=== PATIENT | male | born 1985 ===

== ENCOUNTER 2023-06-20 17:55 | Inpatient (IN) | payer OTHER ==
[2023-06-20 18:52] LABS: #Eosinphils 0.3 thou/uL (0.0-0.7); #Monocytes 0.7 thou/uL (0.11-0.59); #Neutrophils 7.4 thou/uL (1.40-6.50); %Basophils 0.3 % (0.0-1.0); %Eosinophils 2.5 % (0.0-10.0); %Lymphocytes 17.5 % (21.0-51.0); %Monocytes 6.4 % (0.0-10.0); %Neutrophils 72.9 % (42.0-75.0); Hematocrit 46.3 % (42.0-52.0); Hemoglobin 15.1 g/dL (14.0-18.0); Mean Corpuscular HGB CONC 32.6 g/dL (32.0-36.0); Mean Corpuscular Hemoglobin 28.3 pg (27.0-31.0); Mean Corpuscular Volume 86.7 fl (78.0-98.0); Mean Platelet Volume 8.8 fL (7.4-10.4); Platelet Count 295 10x3/uL (130-400); RBC Distribution Width 11.9 % (11.5-14.5); Red Blood Cell (RBC) Count 5.34 mill/uL (4.70-6.10); White Blood Cell (WBC) Count 10.2 10x3/uL (4.8-10.8)
[2023-06-20 19:08] LABS: ALT (SGPT) 21 U/L (8-55); AST (SGOT) 19 U/L (5-34); Albumin 4.7 g/dL (3.5-5.0); Alkaline Phosphatase 59 U/L (40-110); Anion Gap 14 mmol/L (10-20); BUN (Urea Nitrogen) 11 mg/dL (8.9-20.6); Bilirubin, Total 0.7 mg/dL (0.2-1.2); Calc. Creatinine Clearance 0 mL/min (70-130); Calcium 9.3 mg/dL (7.8-10.44); Carbon Dioxide 22 mmol/L (22-29); Chloride 104 mmol/L (98-107); Estimated GFR 111; Glucose 149 mg/dL (70-105); Potassium 3.9 mmol/L (3.5-5.1); Protein, Total 7.7 g/dL (6.0-8.3); Sodium 136 mmol/L (136-145)
[2023-06-20] MEDS ORDERED: Ketorolac Tromethamine 30 MG (1 mL) VIAL ONE (19:17)
[2023-06-20] MEDS ORDERED: LORazepam 2 MG/ML SYR.(CARPUJECT) ONE (19:18)
[2023-06-20] MEDS ORDERED: Ondansetron PF 4 MG/2 ML Vial ONE ×2 (19:18→20:26)
[2023-06-20] MEDS ORDERED: Ketamine In 0.9 % NaCl 50 MG/5 ML SYRINGE ONE (19:18)
[2023-06-20] MEDS ORDERED: Magnesium 2 GM/50 ML BAG (IN WATER) ONE (20:05)
[2023-06-20] MEDS ORDERED: metroNIDAZOLE 500 MG (100 mL) BAG ONE (20:05)
[2023-06-20] MEDS ORDERED: Boostrix 0.5 ML (Tdap) VIAL (>/=7 yrs of age) ONE (20:06)
[2023-06-20] MEDS ORDERED: TETANUS, DIPHTHERIA TOX,ADULT (TDVAX) 0.5 ML VIAL IM ONE (20:06)
[2023-06-20] MEDS ORDERED: Rocuronium Bromide 10 MG/ML (10ML VIAL) ONE (20:10)
[2023-06-20] MEDS ORDERED: Etomidate 40 MG (20 mL) VIAL ONE (20:10)
[2023-06-20] MEDS ORDERED: Midazolam HCl 2 mg/2 ml Vial ONE (20:26)
[2023-06-20] MEDS ORDERED: Clindamycin/D5W 900 MG in Premix 1 BAG IVPB SCH (20:30)
[2023-06-20 20:33] LABS: Actual Bicarbonate (HCO3a) 20.6 mEq/L (22-28); Base Excess (BEa) -3.4 mEq/L (-2.0 to +3.0); CO2 Tension 34.3 mmHg (35.0-45.0); Calcium, Ionized (arterial) 1.15 mmol/L (1.12-1.30); Carboxyhemoglobin (COHb) 0.8 gm% (0.0-3.0); Hematocrit-ABG 41 % (42.0-52.0); Hemoglobin (Hb) 14.1 g/dL (14.0-18.0); O2 Tension (PaO2), arterial 134.7 mmHg (80.0-100.0); Potassium - ABG Lab 3.99 mmol/L (3.70-5.30); pH, Arterial 7.397 (7.35-7.45)
[2023-06-20 20:37] LABS: ALV-art Gradient 36.325 mmHg (0-20); Puncture Site LBA
[2023-06-20] MEDS ORDERED: fentaNYL 50 mcg/mL 1 mL Vial ONE (20:59)
[2023-06-20] MEDS ORDERED: HyperTET 250 UNITS/ML 1 ML SYRINGE IM ONE (21:00)
[2023-06-20] MEDS ORDERED: Midazolam HCl 5 mg/ml Vial ONE ×2 (21:52→22:00)
[2023-06-20] MEDS ORDERED: Propofol 1,000 MG/100 ML VIAL IV ONE (22:02)
[2023-06-20] MEDS ORDERED: Fentanyl CADD 100 ML ONE (22:45)
[2023-06-20] MEDS ORDERED: Ventilator Sedation Protocol 1 EACH FS SCH (22:45)
[2023-06-20] MEDS ORDERED: Fentanyl BOLUS 250 ML IVPB PRN (23:00)
[2023-06-20] MEDS ORDERED: DISCONTINUE PREVIOUS NARCOTIC PAIN MEDICATIONS AND BENZODIAZEPINES FS SCH (23:00)
[2023-06-20] MEDS ORDERED: Propofol BOLUS 1,000 MG/100 ML VIAL IV PRN (23:00)
[2023-06-20] MEDS: Fentanyl CADD 100 ML IV SCH (23:23)
[2023-06-20] MEDS ORDERED: Dextrose 50% Abboject 50 ML SYRINGE SLOW IVP PRN (23:51)
[2023-06-20] MEDS ORDERED: Dextrose 5% in Water 1,000 ML IV PRN (23:51)
[2023-06-20] MEDS ORDERED: Glucagon 1 MG/ML KIT IM PRN (23:51)
[2023-06-20] MEDS ORDERED: Electrolyte Replacement Protocol 1 EACH FS PRN (23:52)
[2023-06-21] MEDS: Lactated Ringer's 1,000 ML IV SCH ×3 (00:16→19:45)
[2023-06-21] MEDS: Propofol 1,000 MG/100 ML VIAL IV PRN ×5 (01:07→23:36)
[2023-06-21] MEDS: metroNIDAZOLE 500 MG in Premix 1 BAG IVPB SCH ×4 (01:17→20:28)
[2023-06-21] MEDS ORDERED: levETIRAcetam 500 MG (5 mL) VIAL SLOW IVP SCH ×2 (02:00→02:15)
[2023-06-21 02:07] LABS: #Neutrophils 10.3 thou/uL (1.40-6.50); %Basophils 0.1 % (0.0-1.0); %Eosinophils 0.3 % (0.0-10.0); %Lymphocytes 19.4 % (21.0-51.0); %Monocytes 7.1 % (0.0-10.0); %Neutrophils 72.7 % (42.0-75.0); Hematocrit 41.1 % (42.0-52.0); Hemoglobin 13.3 g/dL (14.0-18.0); Mean Corpuscular HGB CONC 32.4 g/dL (32.0-36.0); Mean Corpuscular Hemoglobin 28.6 pg (27.0-31.0); Mean Corpuscular Volume 88.4 fl (78.0-98.0); Mean Platelet Volume 8.9 fL (7.4-10.4); Platelet Count 264 10x3/uL (130-400); Red Blood Cell (RBC) Count 4.65 mill/uL (4.70-6.10); White Blood Cell (WBC) Count 14.1 10x3/uL (4.8-10.8)
[2023-06-21 02:18] LABS: Lactic Acid 3.3 mmol/L (0.5-2.2)
[2023-06-21 02:29] LABS: Amphetamine Not Detected (NotDetected); Barbiturates Screen Not Detected (NotDetected); Benzodiazepine Screen Detected (NotDetected); Cocaine Metabolite Screen Not Detected (NotDetected); Methadone Not Detected (NotDetected); Methamphetamine Not Detected (NotDetected); Opiate Screen Not Detected (NotDetected); Oxycodone Screen Not Detected (NotDetected); Phencyclidine (PCP) Not Detected (NotDetected); THC/Cannabinoid Screen Not Detected (NotDetected); Tricyclic Screen Not Detected (NotDetected)
[2023-06-21 02:33] LABS: Hemoglobin A1c 5.1 % (4.0-6.0)
[2023-06-21 02:38] LABS: ALT (SGPT) 17 U/L (8-55); AST (SGOT) 20 U/L (5-34); Albumin 3.7 g/dL (3.5-5.0); Alkaline Phosphatase 58 U/L (40-110); Anion Gap 18 mmol/L (10-20); BUN (Urea Nitrogen) 8 mg/dL (8.9-20.6); Bilirubin, Total 0.8 mg/dL (0.2-1.2); CK (CPK) 147 U/L (30-200); Calc. Creatinine Clearance 154 mL/min (70-130); Carbon Dioxide 18 mmol/L (22-29); Chloride 108 mmol/L (98-107); Estimated GFR 116; Globulin 2.6 g/dL (2.4-3.5); Glucose 99 mg/dL (70-105); Protein, Total 6.3 g/dL (6.0-8.3); Sodium 140 mmol/L (136-145)
[2023-06-21] MEDS ORDERED: cefTRIAXone\\ROCEPHIN 2 GM in Sodium Chloride 0.9% 100 ML IVPB SCH (03:00)
[2023-06-21] MEDS ORDERED: metroNIDAZOLE 500 MG in Premix 1 BAG IVPB SCH (06:00)
[2023-06-21 07:31] LABS: Base Excess (BEa) 1.7 mEq/L (-2.0 to +3.0); Calcium, Ionized (arterial) 1.18 mmol/L (1.12-1.30); Carboxyhemoglobin (COHb) 0.6 gm% (0.0-3.0); Hematocrit-ABG 39 % (42.0-52.0); Hemoglobin (Hb) 13.2 g/dL (14.0-18.0); O2 Tension (PaO2), arterial 137.5 mmHg (80.0-100.0); Potassium - ABG Lab 3.36 mmol/L (3.70-5.30); pH, Arterial 7.507 (7.35-7.45)
[2023-06-21 07:34] LABS: Puncture Site RBA
[2023-06-21] MEDS ORDERED: Magnesium 2 GM/50 ML(in water) 2 GM in Premix 1 BAG IVPB SCH (08:00)
[2023-06-21] MEDS: Famotidine 20 MG TAB PER TUBE SCH ×2 (08:17→20:33)
[2023-06-21] MEDS: Enoxaparin 40 MG (0.4 mL) SYRINGE SC SCH (08:17)
[2023-06-21 08:43] LABS: Lactic Acid 3.2 mmol/L (0.5-2.2)
[2023-06-21] MEDS: Ampicillin/Sulbactam 3 GM in Sodium Chloride 0.9% 100 ML IVPB SCH ×3 (09:31→20:28)
[2023-06-21] MEDS ORDERED: HyperTET 250 UNITS/ML 1 ML SYRINGE IM ONE (12:00)
[2023-06-21 14:17] LABS: ALT (SGPT) 17 U/L (8-55); AST (SGOT) 19 U/L (5-34); Albumin 3.4 g/dL (3.5-5.0); Alkaline Phosphatase 56 U/L (40-110); Anion Gap 16 mmol/L (10-20); BUN (Urea Nitrogen) 10 mg/dL (8.9-20.6); Bilirubin, Total 1.1 mg/dL (0.2-1.2); Calc. Creatinine Clearance 142 mL/min (70-130); Calcium 8.2 mg/dL (7.8-10.44); Carbon Dioxide 20 mmol/L (22-29); Chloride 107 mmol/L (98-107); Estimated GFR 113; Globulin 2.6 g/dL (2.4-3.5); Glucose 69 mg/dL (70-105); Potassium 3.8 mmol/L (3.5-5.1); Sodium 139 mmol/L (136-145)
[2023-06-21 14:32] LABS: HIV (1/2) Antibody/Antigen Non-Reactive (NonReactive); HIV 1/2 INDEX 0.15 S/CO (<1.00)
[2023-06-21] MEDS: Lorazepam 2 MG/ML VIAL SLOW IVP PRN ×2 (19:48→23:21)
[2023-06-21] MEDS: Acetaminophen 325 MG TAB PER TUBE PRN (19:49)
[2023-06-21] MEDS: levETIRAcetam 500 MG (5 mL) VIAL SLOW IVP SCH (20:26)
[2023-06-21] MEDS ORDERED: Ibuprofen 800 MG TAB PER TUBE SCH (20:45)
[2023-06-21] MEDS ORDERED: levETIRAcetam 500 MG TAB PO SCH (21:00)
[2023-06-22] MEDS: Ampicillin/Sulbactam 3 GM in Sodium Chloride 0.9% 100 ML IVPB SCH ×4 (02:03→20:45)
[2023-06-22] MEDS: Potassium Chloride 10 MEQ in Dextrose 5%-Lactated Ringers 1,000 ML IV SCH ×2 (02:03→13:00)
[2023-06-22] MEDS: metroNIDAZOLE 500 MG in Premix 1 BAG IVPB SCH ×2 (02:14→10:05)
[2023-06-22] MEDS ORDERED: Ibuprofen 100 MG/5 ML UDCUP PER TUBE SCH (02:15)
[2023-06-22] MEDS: Lorazepam 2 MG/ML VIAL SLOW IVP PRN ×2 (02:34→07:45)
[2023-06-22] MEDS: Propofol 1,000 MG/100 ML VIAL IV PRN ×3 (03:18→14:28)
[2023-06-22 04:21] LABS: #Eosinphils 0.5 thou/uL (0.0-0.7); #Monocytes 1.1 thou/uL (0.11-0.59); #Neutrophils 5.3 thou/uL (1.40-6.50); %Basophils 0.5 % (0.0-1.0); %Eosinophils 5.4 % (0.0-10.0); %Lymphocytes 20.3 % (21.0-51.0); %Monocytes 12.7 % (0.0-10.0); Hematocrit 39.6 % (42.0-52.0); Hemoglobin 12.7 g/dL (14.0-18.0); Mean Corpuscular HGB CONC 32.1 g/dL (32.0-36.0); Mean Corpuscular Hemoglobin 28.4 pg (27.0-31.0); Mean Corpuscular Volume 88.6 fl (78.0-98.0); Mean Platelet Volume 9.2 fL (7.4-10.4); Platelet Count 246 10x3/uL (130-400); RBC Distribution Width 12.3 % (11.5-14.5); Red Blood Cell (RBC) Count 4.47 mill/uL (4.70-6.10); White Blood Cell (WBC) Count 8.6 10x3/uL (4.8-10.8)
[2023-06-22 04:36] LABS: ALT (SGPT) 18 U/L (8-55); AST (SGOT) 19 U/L (5-34); Albumin 3.5 g/dL (3.5-5.0); Alkaline Phosphatase 55 U/L (40-110); Anion Gap 11 mmol/L (10-20); BUN (Urea Nitrogen) 10 mg/dL (8.9-20.6); Bilirubin, Total 0.9 mg/dL (0.2-1.2); Calc. Creatinine Clearance 128 mL/min (70-130); Calcium 8.4 mg/dL (7.8-10.44); Carbon Dioxide 23 mmol/L (22-29); Chloride 111 mmol/L (98-107); Estimated GFR 106; Globulin 2.5 g/dL (2.4-3.5); Glucose 112 mg/dL (70-105); Potassium 3.7 mmol/L (3.5-5.1); Sodium 141 mmol/L (136-145)
[2023-06-22 07:34] LABS: CO2 Tension 36.2 mmHg (35.0-45.0); Carboxyhemoglobin (COHb) 0.5 gm% (0.0-3.0); Hematocrit-ABG 40 % (42.0-52.0); Hemoglobin (Hb) 13.5 g/dL (14.0-18.0); pH, Arterial 7.421 (7.35-7.45)
[2023-06-22 07:36] LABS: Puncture Site RRA
[2023-06-22] MEDS: Fentanyl CADD 100 ML IV SCH ×2 (08:25→22:39)
[2023-06-22 09:51] VITALS: BMI 28.3
[2023-06-22] MEDS: Famotidine 20 MG TAB PER TUBE SCH ×2 (10:06→20:46)
[2023-06-22] MEDS: levETIRAcetam 500 MG (5 mL) VIAL SLOW IVP SCH ×2 (10:06→20:46)
[2023-06-22] MEDS: Enoxaparin 40 MG (0.4 mL) SYRINGE SC SCH (10:07)
[2023-06-22 11:23] LABS: Syphilis Antibody Nonreactive (Nonreactive); Syphilis Antibody Index 0.14 S/CO (<1.00 Non-Reactive)
[2023-06-22] MEDS: Acetaminophen 325 MG TAB PER TUBE PRN (21:36)
[2023-06-23] MEDS: Potassium Chloride 10 MEQ in Dextrose 5%-Lactated Ringers 1,000 ML IV SCH ×3 (01:11→17:28)
[2023-06-23] MEDS: Propofol 1,000 MG/100 ML VIAL IV PRN ×2 (01:11→06:30)
[2023-06-23] MEDS: Ampicillin/Sulbactam 3 GM in Sodium Chloride 0.9% 100 ML IVPB SCH ×4 (01:11→20:14)
[2023-06-23 04:20] LABS: #Eosinphils 0.9 thou/uL (0.0-0.7); #Monocytes 1.3 thou/uL (0.11-0.59); #Neutrophils 5.5 thou/uL (1.40-6.50); %Basophils 0.4 % (0.0-1.0); %Lymphocytes 25.5 % (21.0-51.0); %Monocytes 12.5 % (0.0-10.0); %Neutrophils 52.3 % (42.0-75.0); Hematocrit 41.4 % (42.0-52.0); Hemoglobin 13.4 g/dL (14.0-18.0); Mean Corpuscular HGB CONC 32.4 g/dL (32.0-36.0); Mean Corpuscular Volume 89.6 fl (78.0-98.0); Platelet Count 224 10x3/uL (130-400); RBC Distribution Width 12.4 % (11.5-14.5); Red Blood Cell (RBC) Count 4.62 mill/uL (4.70-6.10); White Blood Cell (WBC) Count 10.4 10x3/uL (4.8-10.8)
[2023-06-23 05:08] LABS: ALT (SGPT) 16 U/L (8-55); AST (SGOT) 19 U/L (5-34); Albumin 3.3 g/dL (3.5-5.0); Alkaline Phosphatase 54 U/L (40-110); Anion Gap 16 mmol/L (10-20); BUN (Urea Nitrogen) 6 mg/dL (8.9-20.6); Bilirubin, Total 0.8 mg/dL (0.2-1.2); Calc. Creatinine Clearance 149 mL/min (70-130); Calcium 8.6 mg/dL (7.8-10.44); Carbon Dioxide 20 mmol/L (22-29); Chloride 109 mmol/L (98-107); Estimated GFR 115; Glucose 116 mg/dL (70-105); Protein, Total 6.3 g/dL (6.0-8.3); Sodium 141 mmol/L (136-145)
[2023-06-23 07:50] LABS: Actual Bicarbonate (HCO3a) 23.3 mEq/L (22-28); Base Excess (BEa) -0.4 mEq/L (-2.0 to +3.0); CO2 Tension 35.3 mmHg (35.0-45.0); Calcium, Ionized (arterial) 1.15 mmol/L (1.12-1.30); Carboxyhemoglobin (COHb) 0.6 gm% (0.0-3.0); Hematocrit-ABG 39 % (42.0-52.0); Hemoglobin (Hb) 13.1 g/dL (14.0-18.0); O2 Tension (PaO2), arterial 112.6 mmHg (80.0-100.0); Potassium - ABG Lab 3.77 mmol/L (3.70-5.30); pH, Arterial 7.437 (7.35-7.45)
[2023-06-23 07:52] LABS: ALV-art Gradient 57.175 mmHg (0-20); Puncture Site RRA
[2023-06-23] MEDS: Enoxaparin 40 MG (0.4 mL) SYRINGE SC SCH (09:02)
[2023-06-23] MEDS: Famotidine 20 MG TAB PER TUBE SCH ×2 (09:02→20:14)
[2023-06-23] MEDS: levETIRAcetam 500 MG (5 mL) VIAL SLOW IVP SCH ×2 (09:04→20:13)
[2023-06-23] MEDS ORDERED: Polyethylene Glycol 3350 17 GM Packet PO PRN (11:43)
[2023-06-23] MEDS ORDERED: Bisacodyl 5 MG TAB PO PRN (11:43)
[2023-06-23] MEDS ORDERED: Docusate 100 MG CAP PO PRN (11:43)
[2023-06-23] MEDS ORDERED: Dexmedetomidine 400 MCG, Admixture Fee 1 EACH in Sodium Chloride 0.9% 96 ML IVPB SCH (11:45)
[2023-06-23] MEDS ORDERED: Lorazepam 2 MG/ML VIAL SLOW IVP PRN (22:04)
[2023-06-23] MEDS: Lorazepam 2 MG/ML VIAL SLOW IVP PRN (22:16)
[2023-06-23] MEDS: Morphine 2 MG/ML VIAL SLOW IVP PRN (23:45)
[2023-06-24] MEDS: Ampicillin/Sulbactam 3 GM in Sodium Chloride 0.9% 100 ML IVPB SCH ×4 (01:29→20:31)
[2023-06-24] MEDS: Morphine 2 MG/ML VIAL SLOW IVP PRN (01:31)
[2023-06-24 06:36] LABS: #Eosinphils 0.4 thou/uL (0.0-0.7); #Monocytes 1.2 thou/uL (0.11-0.59); #Neutrophils 6.5 thou/uL (1.40-6.50); %Basophils 0.3 % (0.0-1.0); %Eosinophils 3.8 % (0.0-10.0); %Lymphocytes 19.6 % (21.0-51.0); %Monocytes 12.2 % (0.0-10.0); %Neutrophils 63.8 % (42.0-75.0); Hematocrit 42.4 % (42.0-52.0); Hemoglobin 13.8 g/dL (14.0-18.0); Mean Corpuscular HGB CONC 32.5 g/dL (32.0-36.0); Mean Corpuscular Hemoglobin 28.2 pg (27.0-31.0); Mean Corpuscular Volume 86.7 fl (78.0-98.0); Mean Platelet Volume 9.4 fL (7.4-10.4); Platelet Count 249 10x3/uL (130-400); RBC Distribution Width 11.8 % (11.5-14.5); Red Blood Cell (RBC) Count 4.89 mill/uL (4.70-6.10); White Blood Cell (WBC) Count 10.1 10x3/uL (4.8-10.8)
[2023-06-24 07:02] LABS: Anion Gap 15 mmol/L (10-20); BUN (Urea Nitrogen) 6 mg/dL (8.9-20.6); Calc. Creatinine Clearance 165 mL/min (70-130); Calcium 9.2 mg/dL (7.8-10.44); Carbon Dioxide 23 mmol/L (22-29); Chloride 107 mmol/L (98-107); Estimated GFR 119; Glucose 107 mg/dL (70-105); Potassium 3.8 mmol/L (3.5-5.1); Sodium 141 mmol/L (136-145)
[2023-06-24] MEDS ORDERED: FLU VACC QS2023-24(6MOS UP)/PF 60 MCG/0.5 ML SYRINGE IM ONE (09:00)
[2023-06-24] MEDS: Potassium Chloride 10 MEQ in Dextrose 5%-Lactated Ringers 1,000 ML IV SCH (09:30)
[2023-06-24] MEDS: Enoxaparin 40 MG (0.4 mL) SYRINGE SC SCH (09:30)
[2023-06-24] MEDS: levETIRAcetam 500 MG (5 mL) VIAL SLOW IVP SCH ×2 (09:30→20:31)
[2023-06-24] MEDS: Famotidine 20 MG TAB PER TUBE SCH ×2 (09:30→20:31)
[2023-06-24] MEDS ORDERED: Potassium Chloride 10 MEQ in Dextrose 5%-Lactated Ringers 1,000 ML IV SCH (12:24)
[2023-06-24] MEDS: Acetaminophen 325 MG TAB PER TUBE PRN ×3 (12:44→20:31)
[2023-06-25] MEDS ORDERED: Sodium Chloride 0.65% Nasal 44 ML BOT EA NARE PRN (01:11)
[2023-06-25] MEDS: Acetaminophen 325 MG TAB PER TUBE PRN ×2 (01:24→09:23)
[2023-06-25 05:13] LABS: #Eosinphils 0.9 thou/uL (0.0-0.7); #Neutrophils 4.2 thou/uL (1.40-6.50); %Basophils 0.5 % (0.0-1.0); %Eosinophils 10.6 % (0.0-10.0); %Lymphocytes 26.3 % (21.0-51.0); %Neutrophils 50.5 % (42.0-75.0); Hematocrit 42.2 % (42.0-52.0); Hemoglobin 13.7 g/dL (14.0-18.0); Mean Corpuscular HGB CONC 32.5 g/dL (32.0-36.0); Mean Corpuscular Hemoglobin 28.2 pg (27.0-31.0); Mean Platelet Volume 9.2 fL (7.4-10.4); Platelet Count 299 10x3/uL (130-400); RBC Distribution Width 11.8 % (11.5-14.5); Red Blood Cell (RBC) Count 4.85 mill/uL (4.70-6.10); White Blood Cell (WBC) Count 8.3 10x3/uL (4.8-10.8)
[2023-06-25 05:36] LABS: Anion Gap 11 mmol/L (10-20); BUN (Urea Nitrogen) 12 mg/dL (8.9-20.6); Calc. Creatinine Clearance 158 mL/min (70-130); Calcium 9.1 mg/dL (7.8-10.44); Carbon Dioxide 23 mmol/L (22-29); Chloride 109 mmol/L (98-107); Estimated GFR 117; Glucose 98 mg/dL (70-105); Potassium 3.8 mmol/L (3.5-5.1); Sodium 139 mmol/L (136-145)
[2023-06-25 08:08] VITALS: BP 144/84; TEMP 98
[2023-06-25] MEDS ORDERED: Amoxicillin/Potassium Clav 875 MG TAB PO SCH (09:00)
[2023-06-25] MEDS: Enoxaparin 40 MG (0.4 mL) SYRINGE SC SCH (09:21)
[2023-06-25] MEDS: Famotidine 20 MG TAB PER TUBE SCH (09:21)
[2023-06-25] MEDS: levETIRAcetam 500 MG (5 mL) VIAL SLOW IVP SCH (09:21)
== END 2023-06-25 11:30 | DRG 208 ==
LOC: EEVIPCON 17:55 → ERS 17:55 → CCU 22:07 → 2SE 06-23 21:12
PROVIDERS: ADMIT Internal Medicine; ATTEND Family Medicine
PROC: 5A1945Z Respiratory Ventilation, 24-96 Consecutive Hours (ICD-10-PCS; principal; 2023-06-20)
PROC: 0BH17EZ Insertion of Endotracheal Airway into Trachea, Via Natural or Artificial Opening (ICD-10-PCS; 2023-06-20)
PROC: 4A133R1 Monitoring of Arterial Saturation, Peripheral, Percutaneous Approach (ICD-10-PCS; 2023-06-20)
PROC: 4A10X4Z Monitoring of Central Nervous Electrical Activity, External Approach (ICD-10-PCS; 2023-06-21)
PROC: 4A10X4Z Monitoring of Central Nervous Electrical Activity, External Approach (ICD-10-PCS; 2023-06-22)
DX: J96.01 Acute respiratory failure with hypoxia (principal); G93.41 Metabolic encephalopathy; E87.20 Acidosis, unspecified; R25.2 Cramp and spasm; R56.9 Unspecified convulsions; J32.4 Chronic pansinusitis; G93.89 Other specified disorders of brain; Z78.1 Physical restraint status
CPT/HCPCS: 31500; 36415; 36416; 36600; 70450; 70486; 70553; 71045; 80048; 80053; 80306; 82550; 82805; 83036; 83605; 83735; 84146; 85025; 86780; 87040; 87389; 90471; 90472; 90714; 90715; 93005; 93010; 94002; 94003; 95711; 95816; 95819; 96374; 96375; J0295; J0696; J1650; J1670; J1885; J1953; J2060; J2250; J2272; J2405; J2704; J3010; J3475; J3480; J3490; J7120